=== PATIENT | male | born 1965 | race Caucasian/White ===

== ENCOUNTER 2020-07-31 13:21 | Observation (INO) ==
[2020-07-31] MEDS ORDERED: Acetaminophen 325 MG TABLET PO PRN (16:18)
[2020-07-31] MEDS ORDERED: *HR* OxyCODONE Immed Rel 5 MG TABLET PO PRN (16:18)
[2020-07-31] MEDS ORDERED: *HR* HYDROcodone/Acet 5/325 mg TABLET PO PRN (16:18)
[2020-07-31] MEDS ORDERED: Naloxone 0.4 MG/ML INJ IVP PRN (16:18)
[2020-07-31] MEDS ORDERED: Ondansetron ODT 4 MG TAB.RAPDIS SL PRN (16:18)
[2020-07-31] MEDS ORDERED: Melatonin 3 MG TABLET PO PRN (16:18)
[2020-07-31] MEDS ORDERED: Isovue-370 500 ML BOTTLE IVP ONE ×2 (16:19→17:00)
[2020-07-31] MEDS ORDERED: Dextrose Gel 15 GM/37.5 ML TUBE PO PRN ×2 (16:21)
[2020-07-31] MEDS ORDERED: *HR* Dextrose 50 % in Water (Vial) 50 ML VIAL IVP PRN (16:21)
[2020-07-31] MEDS ORDERED: D5% in Water 1,000 ML IVC PRN (16:21)
[2020-07-31] MEDS ORDERED: 0.9 % Sodium Chloride 1,000 ML IVC SCH (16:45)
[2020-07-31] MEDS ORDERED: levoFLOXacin 750 MG/150 ML 750 MG/150 ML BAG IVPB SCH (17:00)
[2020-07-31] MEDS: Insulin LISPRO 300 UNITS/3 ML VIAL SUBQ SCH (17:22)
[2020-07-31] MEDS: *HR* Heparin 5,000 UNIT/ML VIAL SQ SCH (17:24)
[2020-07-31] MEDS: Vancomycin 1,750 MG/517.5 ML IV.SOLN IVPB SCH (17:33)
[2020-07-31] MEDS: Nicotine 21 MG PATCH.TD24 TD SCH (17:34)
[2020-07-31] MEDS ORDERED: Insulin DETEMIR 100 UNIT/ML X5UNITS SUBQ SCH (21:00)
[2020-07-31] MEDS: Pregabalin 75 MG CAPSULE PO SCH (21:32)
[2020-07-31] MEDS: metroNIDAZOLE 500 MG TABLET PO SCH (21:32)
[2020-08-01 02:11] LABS: Basophils % 0.4 %; Eosinophils # 0.1 K/mcL (0.0-0.6); Eosinophils % 1.4 %; Hematocrit 39.4 % (37.5-50.1); Hemoglobin 13.6 g/dL (12.9-16.9); Lymphocytes # 1.6 K/mcL (0.6-4.6); Lymphocytes % 22.4 %; Mean Corpuscular HGB Conc 34.5 g/dL (31.6-35.5); Mean Corpuscular Hemoglobin 31.9 pg (28.0-33.3); Mean Corpuscular Volume 92.5 fL (83.0-100.0); Mean Platelet Volume 11.2 fL (9.4-12.4); Monocytes # 0.8 K/mcL (0.0-1.3); Monocytes % 11.3 %; Neutrophils # 4.6 K/mcL (1.6-8.9); Platelet Count 191 K/mcL (140-400); Red Blood Count 4.26 M/mcL (4.19-5.50); Red Cell Distribution Width 11.8 % (11.5-14.5); Segmented Neutrophils % 63.5 %; White Blood Count 7.2 K/mcL (4.3-11.1)
[2020-08-01 02:27] LABS: BUN/Creatinine Ratio 9 (6-26); Blood Urea Nitrogen 7 mg/dL (6-20); Calcium 8.7 mg/dL (8.6-10.3); Carbon Dioxide 23 mEq/L (23-29); Chloride 106 mEq/L (98-107); Glucose 234 mg/dL (70-105); Osmolality,Calculated 286 (280-300); Sodium 135 mEq/L (136-145); eGFR For African Americans > 60 (> 60); eGFR For Non-African Americans > 60 (> 60)
[2020-08-01] MEDS: Vancomycin 1,750 MG/517.5 ML IV.SOLN IVPB SCH ×2 (05:06→17:17)
[2020-08-01] MEDS: *HR* Heparin 5,000 UNIT/ML VIAL SQ SCH ×2 (05:06→17:33)
[2020-08-01] MEDS: Pregabalin 75 MG CAPSULE PO SCH ×2 (07:34→20:50)
[2020-08-01] MEDS: Nicotine 21 MG PATCH.TD24 TD SCH (07:34)
[2020-08-01] MEDS: metroNIDAZOLE 500 MG TABLET PO SCH ×3 (07:34→20:50)
[2020-08-01] MEDS: Insulin LISPRO 300 UNITS/3 ML VIAL SUBQ SCH ×3 (07:35→17:32)
[2020-08-01] MEDS ORDERED: Ondansetron 4 MG/2 ML VIAL IVP PRN ×2 (08:40→14:10)
[2020-08-01] MEDS ORDERED: Promethazine 6.25 MG in Water for inj. (sterile) 20 ML IVPB PRN ×2 (08:40→14:10)
[2020-08-01] MEDS ORDERED: *HR* OxyCODONE Immed Rel 5 MG TABLET PO PRN ×2 (08:40→14:10)
[2020-08-01] MEDS ORDERED: *HR* HYDROmorphone PF 0.5 MG/0.5 ML SYRINGE IVP PRN ×2 (08:40→14:10)
[2020-08-01] MEDS ORDERED: Lidocaine -MPF 2% 2 ML VIAL ONE (12:21)
[2020-08-01] MEDS ORDERED: Lidocaine -MPF 4% 5 ML AMPUL ONE (12:21)
[2020-08-01] MEDS ORDERED: Ondansetron 4 MG/2 ML VIAL ONE (12:21)
[2020-08-01] MEDS ORDERED: *HR* Rocuronium Bromide 50 MG/5 ML VIAL ONE (12:21)
[2020-08-01] MEDS ORDERED: *HR* FentaNYL (PF) 100 MCG/2 ML VIAL ONE ×2 (12:22→13:07)
[2020-08-01] MEDS ORDERED: *HR* Midazolam HCl 2 MG/2 ML VIAL ONE (12:22)
[2020-08-01] MEDS ORDERED: *HR* Propofol 200 MG/20 ML VIAL IVP ONE (12:22)
[2020-08-01] MEDS ORDERED: CefOXitin 1,000 MG VIAL ONE (12:32)
[2020-08-01] MEDS ORDERED: Ondansetron ODT 4 MG TAB.RAPDIS SL PRN (14:10)
[2020-08-01] MEDS ORDERED: Naloxone 0.4 MG/ML INJ IVP PRN (14:10)
[2020-08-01] MEDS ORDERED: *HR* HYDROcodone/Acet 5/325 mg TABLET PO PRN (14:10)
[2020-08-01] MEDS ORDERED: D5% in Water 1,000 ML IVC PRN (14:10)
[2020-08-01] MEDS ORDERED: Acetaminophen 325 MG TABLET PO PRN (14:10)
[2020-08-01] MEDS ORDERED: Melatonin 3 MG TABLET PO PRN (14:10)
[2020-08-01] MEDS ORDERED: Isovue-370 500 ML BOTTLE IVP ONE (14:10)
[2020-08-01] MEDS ORDERED: *HR* Dextrose 50 % in Water (Vial) 50 ML VIAL IVP PRN (14:10)
[2020-08-01] MEDS ORDERED: Dextrose Gel 15 GM/37.5 ML TUBE PO PRN ×2 (14:10)
[2020-08-01] MEDS ORDERED: levoFLOXacin 750 MG/150 ML 750 MG/150 ML BAG IVPB SCH (17:00)
[2020-08-01] MEDS: Insulin DETEMIR 100 UNIT/ML X5UNITS SUBQ SCH (20:54)
[2020-08-02 03:55] LABS: Hematocrit 40.8 % (37.5-50.1); Hemoglobin 13.9 g/dL (12.9-16.9); Mean Corpuscular HGB Conc 34.1 g/dL (31.6-35.5); Mean Corpuscular Hemoglobin 31.1 pg (28.0-33.3); Mean Corpuscular Volume 91.3 fL (83.0-100.0); Mean Platelet Volume 10.8 fL (9.4-12.4); Platelet Count 190 K/mcL (140-400); Red Blood Count 4.47 M/mcL (4.19-5.50); Red Cell Distribution Width 11.5 % (11.5-14.5); White Blood Count 9.6 K/mcL (4.3-11.1)
[2020-08-02 04:14] LABS: BUN/Creatinine Ratio 11 (6-26); Blood Urea Nitrogen 8 mg/dL (6-20); Calcium 8.8 mg/dL (8.6-10.3); Carbon Dioxide 24 mEq/L (23-29); Chloride 103 mEq/L (98-107); Glucose 279 mg/dL (70-105); Osmolality,Calculated 288 (280-300); Potassium 4.3 mEq/L (3.5-5.1); Sodium 135 mEq/L (136-145); Vancomycin,Trough 7 mcg/mL (5-10); eGFR For African Americans > 60 (> 60); eGFR For Non-African Americans > 60 (> 60)
[2020-08-02] MEDS: Vancomycin 1,750 MG/517.5 ML IV.SOLN IVPB SCH (04:28)
[2020-08-02] MEDS: *HR* Heparin 5,000 UNIT/ML VIAL SQ SCH ×2 (05:02→16:43)
[2020-08-02] MEDS: Pregabalin 75 MG CAPSULE PO SCH ×2 (07:26→21:22)
[2020-08-02] MEDS: metroNIDAZOLE 500 MG TABLET PO SCH ×3 (07:26→21:21)
[2020-08-02] MEDS: Nicotine 21 MG PATCH.TD24 TD SCH (07:27)
[2020-08-02] MEDS: Insulin LISPRO 300 UNITS/3 ML VIAL SUBQ SCH ×3 (08:12→16:43)
[2020-08-02] MEDS: levoFLOXacin 750 MG TABLET PO SCH (16:43)
[2020-08-02] MEDS ORDERED: Vancomycin 2,000 MG/520 ML IV.SOLN IVPB SCH (17:00)
[2020-08-02] MEDS: Insulin DETEMIR 100 UNIT/ML X5UNITS SUBQ SCH (21:23)
[2020-08-03] MEDS: *HR* Heparin 5,000 UNIT/ML VIAL SQ SCH (05:13)
[2020-08-03 07:22] LABS: BUN/Creatinine Ratio 10 (6-26); Blood Urea Nitrogen 9 mg/dL (6-20); Calcium 8.8 mg/dL (8.6-10.3); Carbon Dioxide 28 mEq/L (23-29); Chloride 105 mEq/L (98-107); Glucose 203 mg/dL (70-105); Osmolality,Calculated 290 (280-300); Potassium 3.8 mEq/L (3.5-5.1); Sodium 138 mEq/L (136-145); eGFR For African Americans > 60 (> 60); eGFR For Non-African Americans > 60 (> 60)
[2020-08-03] MEDS: Insulin LISPRO 300 UNITS/3 ML VIAL SUBQ SCH ×2 (08:08→11:51)
[2020-08-03] MEDS: Nicotine 21 MG PATCH.TD24 TD SCH (08:09)
[2020-08-03] MEDS: metroNIDAZOLE 500 MG TABLET PO SCH ×2 (08:10→15:35)
[2020-08-03] MEDS: Pregabalin 75 MG CAPSULE PO SCH (08:10)
[2020-08-03 15:18] VITALS: BP 121/75
[2020-08-03] MEDS: levoFLOXacin 750 MG TABLET PO SCH (15:36)
== END 2020-08-03 16:19 | disposition home or self-care (01) ==
LOC: 3ANU → SUATTDRO 15:54
PROVIDERS: ADMIT Internal Medicine; ATTEND Student in an Organized Health Care Education/Training Program